=== PATIENT | male | born 1995 | race African-American/Black ===

== ENCOUNTER 2021-01-11 13:34 | Outpatient (CLI) | payer OTHER, SELFPAY ==
--- NOTE | 2021-01-11 14:54 | WPDPFTINT ---
PFT Procedure Performed PFT Procedure Performed Spirometry with Pre/Post Bronchodilator Plethysmography (Lung Vol) Diffusing Cap (DLCO) Flow Vol Loop PFT Interpretation This is a pulmonary function test with pre and post-bronchodilator spirometry, plethysmography and diffusing capacity. The test was performed and results interpreted in accordance with the 2019 and 2005 ATS/ERS Task Force guidelines respectively using the Global Lung Function Initiative-2012 reference equations. Patient demonstrated good effort and cooperation. Reproducibility criteria were met. The quality of the pre bronchodilator spirometry maneuver was Grade B and post bronchodilator spirometry maneuver was Grade A. Findings: Spirometry: the contour of the inspiratory and expiratory flow tracing are normal. The pre bronchodilator FVC is 3.43 L, 94% predicted. The pre bronchodilator FEV1 is 2.74 L, 87% predicted. The FEV1: FVC ratio was 80%. The post bronchodilator FVC is 3.28 L, representing a 4% decrease. The post bronchodilator FEV1 is 2.74 L, representing is 0% change. Plethysmography: The total lung capacity is 4.61 L, 96% predicted. The functional residual capacity is 1.98 L, 86% predicted. The residual volume is 0.76 L, 75% predicted. Diffusing capacity: The absolute diffusion capacity is 22.8, 67% predicted. The diffusing capacity corrected for alveolar volume is 5.03, 87% predicted. Impression: The spirometry is normal without evidence of an obstructive abnormality. There is no significant improvement after inhaling a single dose of albuterol. The lung volumes are normal. The The absolute diffusing capacity is mildly decreased but normalizes when corrected for alveolar volume. There are no prior studies for comparison
== END 2021-01-11 13:35 | disposition home or self-care (01) ==
PROVIDERS: PCP Nurse Practitioner Adult Health; Visit Provider Nurse Practitioner Adult Health
DX: R06.2 Wheezing (principal)
CPT/HCPCS: 94060; 94726; 94729

== ENCOUNTER 2021-03-24 02:46 | Emergency (ER) | payer OTHER, SELFPAY ==
--- NOTE | 2021-03-24 02:59 | ECG_ITS ---
Measurements Intervals [place] Rate: 52 P: 28 TN: 127 QRS: 53 QRSD: 93 T: 31 QT: 411 QTc: 383 Interpretive Statements SINUS BRADYCARDIA INCOMPLETE RIGHT BUNDLE BRANCH BLOCK ST ELEVATION IN DIFFUSE LEADS, PROBABLY EARLY REPOLARIZATION BORDERLINE ECG Electronically Signed On 03-24-2021 6:32:48 CDT by Kin Mcgovern D.O.
[2021-03-24 03:23] LABS: Basophils Percent Auto 0.6 % (0.2-1.2); Eosinophils Absolute Auto 0.1 K/mm3 (0-0.3); Eosinophils Percent Auto 2.1 % (0-4.4); Hematocrit 42.4 % (42.0-52.0); Hemoglobin 14.2 g/dL (14.0-18.0); Immature Granulocyte Absolute 0.01 K/mm3 (0.00-0.031); Immature Granulocyte Percent A 0.2 % (0-0.5); Lymphocytes Absolute Auto 1.76 K/mm3 (0.9-3.2); Lymphocytes Percent Auto 33.2 % (18.3-44.2); Mean Corpuscular HGB Conc 33.5 g/dl (32-36); Mean Corpuscular Hemoglobin 30.4 pg (26-34); Mean Corpuscular Volume 90.8 fl (80-100); Mean Platelet Volume 10.2 fl (7.4-10.4); Monocytes Absolute Auto 0.5 K/mm3 (0.1-0.6); Monocytes Percent Auto 9.4 % (2.6-8.5); Neutrophils Absolute Auto 2.9 K/mm3 (1.3-6.7); Neutrophils Percent Auto 54.5 % (45.5-73.1); Platelet Count Result 276 k/mm3 (150-375); Red Blood Count 4.67 M/mm3 (4.6-6.20); Red Cell Distribution Width 11.9 % (11.5-14.5); White Blood Count 5.3 K/mm3 (4.5-10.0)
[2021-03-24 03:34] LABS: Acetaminophen < 10 ug/mL (10-30); Ethanol < 10 mg/dL (<10); Salicylate < 1.0 mg/dL (2-20)
[2021-03-24 03:36] LABS: Alanine Aminotransferase 32 U/L (4-50); Albumin Level 4.7 g/dL (3.5-5.1); Alkaline Phosphatase 75 U/L (38-126); Anion Gap 12 mmol/L (8-16); Aspartate Amino Transferase 36 U/L (17-59); Bilirubin,Total 0.8 mg/dL (0.2-1.3); Blood Urea Nitrogen 12 mg/dL (9-20); Calcium 9.8 mg/dL (8.4-10.2); Carbon Dioxide 22 mmol/L (22-30); Chloride 104 mmol/L (98-107); Estimated Glomerular Filt Rate > 60; Glucose 117 mg/dL (65-110); Potassium 3.4 mmol/L (3.4-5.0); Sodium 138 mmol/L (137-145)
[2021-03-24 03:38] LABS: Add Urine Microscopic? YES; Appearance Urine Clear (Clear); Bacteria Urine Trace /hpf; Bilirubin Urine Negative (Negative); Blood Urine Negative (Negative); Color Urine Yellow (Yellow); Glucose Urine UA Negative (Negative); Ketones Urine Negative (Negative); Leukocyte Esterase Ur Negative LEU/UL (Negative); Mucus Urine Heavy /lpf; Nitrate Urine Negative (Negative); Protein Urine 1+ mg/dL (Negative); RBC Urine 0-2 /hpf (0-2); Specific Grav Ur 1.025 (1.001-1.035); Squamous Epithelial Cell Urine Rare /hpf (Few); WBC Urine 0-3 /hpf
[2021-03-24 03:42] LABS: Amphetamine Screen Urine Negative (Negative); Barbiturate Screen Urine Negative (Negative); Benzodiazepines Screen Urine Negative (Negative); Cannabinoid Screen Urine Negative (Negative); Cocaine Screen Urine Negative (Negative); Methadone Screen Urine Negative (Negative); Opiate Screen Urine Negative (Negative); Phencyclidine Screen Urine Negative (Negative)
--- NOTE | 2021-03-24 03:49 | ED.GENADULT ---
HPI - General Adult General Chief complaint: Psychiatric Symptoms Stated complaint: SI Time Seen by Provider: 03/24/21 03:02 History of Present Illness HPI narrative: Patient is a 25-year-old gentleman who presents the emergency department of needs mental health evaluation. Patient is a resident of a local care home and has history of developmental delay. The patient apparently has been sending explicit text to individuals trying to arrange individuals to meet up with him for encounters. The patient has been sending some of the individuals to a new neighbors house that they are unsuspecting of the individuals arriving. The primary caretakers remove the patient's phone but the patient managed to take the credit cards from the hydrochloric manufacturing supervisor of the care home and managed to purchase a new phone to used to acquire services from other individuals the patient had expressed thoughts of wanting to harm himself after these events that have been occurring and his hoop cutter and the police brought the patient to the emergency department for further evaluation and psychiatric placement Review of Systems Review of Systems: Narrative: A 10 system review of systems was completed on the patient and is negative except for what is stated in the HPI. Nursing and ancillary documentation was reviewed. [facility] Social History Social History Substance use type: does not use Exam Narrative: Exam Narrative: GENERAL: Well-appearing, well-nourished, and in no acute distress. HEAD: Normocephalic, atraumatic. EYES: PERRLA and EOMI. ENT: Nares clear, no rhinorrhea or epistaxis. Mucous membranes moist. NECK: Supple. CHEST: Clear to auscultation. No respiratory distress. HEART: Regular rate and rhythm. No murmur heard. Normal peripheral pulses. ABDOMEN: Soft, nontender, nondistended, normal active bowel sounds. EXTREMITIES: Normal range of motion. No edema. SKIN: Warm, dry, no rash. NEURO: No focal deficits. Alert and oriented x3. PSYCH: Normal mood and affect. Course Course Emergency Course: Patient is medically cleared for psychiatric evaluation Vital Signs Vital signs: Vital Signs Temperature 36.9 C 03/24/21 03:51 Pulse Rate 97 03/24/21 03:51 Respiratory Rate 16 03/24/21 03:51 Blood Pressure 116/73 03/24/21 03:51 Pulse Oximetry 99 03/24/21 03:51 Temperature 36.9 C 03/24/21 03:51 Pulse Rate 97 03/24/21 03:51 Respiratory Rate 16 03/24/21 03:51 Blood Pressure 116/73 03/24/21 03:51 Pulse Oximetry 99 03/24/21 03:51 Medical Decision Making Vital Signs Vital Signs: Vital Signs Temperature 36.9 C 03/24/21 03:51 Pulse Rate 97 03/24/21 03:51 Respiratory Rate 16 03/24/21 03:51 Blood Pressure 116/73 03/24/21 03:51 Pulse Oximetry 99 03/24/21 03:51 Temperature 36.9 C 03/24/21 03:51 Pulse Rate 97 03/24/21 03:51 Respiratory Rate 16 03/24/21 03:51 Blood Pressure 116/73 03/24/21 03:51 Pulse Oximetry 99 03/24/21 03:51 Lab Data Result diagrams: 03/24/21 03:07 03/24/21 03:07 Labs: Lab Results 03/24/21 03/24/21 03/24/21 Range/Units 03:06 03:06 03:07 WBC 5.3 (4.5-10.0) K/mm3 RBC 4.67 (4.6-6.20) M/mm3 Hgb 14.2 (14.0-18.0) g/dL Hct 42.4 (42.0-52.0) % MCV 90.8 (80-100) fl MCH 30.4 (26-34) pg MCHC 33.5 (32-36) g/dl RDW 11.9 (11.5-14.5) % Plt Count 276 (150-375) k/mm3 MPV 10.2 (7.4-10.4) fl Immature Gran % (Auto) 0.2 (0-0.5) % Neut % (Auto) 54.5 (45.5-73.1) % Lymph % (Auto) 33.2 (18.3-44.2) % [place] % (Auto) 9.4 H (2.6-8.5) % Eos % (Auto) 2.1 (0-4.4) % Baso % (Auto) 0.6 (0.2-1.2) % Lymph # (Auto) 1.76 (0.9-3.2) K/mm3 [place] # (Auto) 0.5 (0.1-0.6) K/mm3 Eos # (Auto) 0.1 (0-0.3) K/mm3 Baso # (Auto) 0.0 (0.0-0.1) K/mm3 Abs Immat Gran (auto) 0.01 (0.00-0.031) K/mm3 Absolute Neuts (auto) 2.
[2021-03-24 03:51] VITALS: BP 116/73; PULSE 97; RESP 16; TEMP 36.9; O2SAT 99
[2021-03-24 04:55] LABS: EDCOVIDSCREEN Negative (Negative)
--- NOTE | 2021-03-24 04:59 | PC.NURSE ---
Shara smith/ crisis at bedside now.
[2021-03-24 07:02] VITALS: BP 110/64; PULSE 84; RESP 17; O2SAT 97
--- NOTE | 2021-03-24 07:03 | PC.NURSE ---
sitter at bedside at this time.
[2021-03-24 14:39] VITALS: BP 133/77; PULSE 81; RESP 14; TEMP 36.4; O2SAT 99
--- NOTE | 2021-03-24 15:02 | PC.NURSE ---
Called [facility] to transport patient to [facility]...N/A Called [facility] to transport to [facility]..ETA 30 minutes
[2021-03-24 16:03] VITALS: BP 120/68; PULSE 70; RESP 12; O2SAT 96
== END 2021-03-24 16:04 ==
PROVIDERS: Emergency Medicine; Emergency Provider Emergency Medicine; PCP Nurse Practitioner Adult Health
DX: F32.9 Major depressive disorder, single episode, unspecified (principal); Z20.822 Contact with and (suspected) exposure to COVID-19; R00.1 Bradycardia, unspecified; I45.10 Unspecified right bundle-branch block
CPT/HCPCS: 36415; 80053; 80307; 81001; 84443; 85025; 87426; 93005; 99285; C9803